=== PATIENT | male | born 1970 | race Caucasian/White ===

== ENCOUNTER 2024-04-12 00:58 | Emergency (ER) | payer SELFPAY ==
[2024-04-12 01:10] VITALS: BP 108/75; PULSE 86; RESP 16; TEMP 36.7; O2SAT 95; BMI 28.6
--- NOTE | 2024-04-12 02:05 | W.ED.NECK ---
HPI - Neck Pain/Injury General: Chief Complaint: Neck Pain/Injury Stated Complaint: Pain all over Time Seen by Provider: 04/12/24 02:01 History of Present Illness: 53-year-old man who presents emergency room with multiple joint pain complaints. He says his right ankle hurts. His left knee hurts. His right arm hurts. His neck hurts. This is all been going on for multiple years. When I ask if he seen his primary he says he does not have 1. On asking why he came in tonight versus some another time if anything is changed he has no answer for this. He has a very odd affect. Related Data Previous Rx's Medication Instructions Recorded prednisone 20 mg tablet 60 mg (3 x 20 mg) PO DAILY #20 tabs 04/12/24 Allergies Allergy/AdvReac Type Severity Reaction Status Date / Time No Known Allergies Allergy Verified 04/12/24 01:25 Review of Systems Narrative: Constitutional symptoms: Negative except as documented in HPI. Skin symptoms: Negative except as documented in HPI. Eye symptoms: Negative except as documented in HPI. ENMT symptoms: Negative except as documented in HPI. Respiratory symptoms: Negative except as documented in HPI. Cardiovascular symptoms: Negative except as documented in HPI. Gastrointestinal symptoms: Negative except as documented in HPI. Genitourinary symptoms: Negative except as documented in HPI. Musculoskeletal symptoms: Negative except as documented in HPI. Neurologic symptoms: Negative except as documented in HPI. Psychiatric symptoms: Negative except as documented in HPI. Endocrine symptoms: Negative except as documented in HPI. Physical Exam Narrative: EXAM NARRATIVE: General: Alert, no acute distress. Skin: warm and dry Head: Normocephalic Neck: Trachea midline Eye: Extraocular movements are intact. Ears, nose, mouth and throat: Oral mucosa moist Respiratory: Respirations are non-labored Musculoskeletal: Normal ROM Neurological: Alert and oriented, No focal neurological deficit observed. Psychiatric: Cooperative, appropriate mood & affect. Course Vital Signs: Vital signs: Vital Signs Temperature 98.0 F 04/12/24 01:10 Pulse Rate 86 04/12/24 01:10 Respiratory Rate 16 04/12/24 01:10 Blood Pressure 108/75 04/12/24 01:10 Pulse Oximetry 95 04/12/24 01:10 [facility] - Neck Pain/Injury Medical Decision Making Assessment and plan: Chronic joint pain ?Prednisone in the ER and a prednisone taper for home. - Discharged home - Discussed plan with patient. Answered any questions. - Evaluation and treatment of this problem were appropriate in the emergency setting. No radiology studies performed this visit Discharge Plan Discharge Patient Disposition: Home Clinical Impression: Joint pain Condition: Stable Prescriptions: New prednisone 20 mg tablet 60 mg PO DAILY Qty: 20 0RF Rx Instructions: 3 tabs (60 mg) x 3 days. 2 tabs (40 mg) x 3 days. 1 tab (20 mg) x 3 days. 1/2 tab (10 mg) x 4 days Discharge Orders: Discharge ED (Routine); Ordered 04/12/24 Ordered By: Caridad Arredondo Discharge Diet: Usual diet Discharge Activity: Increase activity as tolerated Patient Instructions: Pain Management Activity Restrictions/Additional Instructions: Thank you for choosing [facility] for your healthcare needs today. Please realize this is an emergency room and that we are providing you with a medical screening exam and this may not be complete and all inclusive of all the testing and or work up that you may need to determine your ailment or severity of your illness. You have been screened and evaluated and felt safe for discharge. Health conditions do change or evolve sometimes and as such it is important that you follow up with your Primary Doctor to be re checked, 3-5 days is a general good time frame for follow up. You are always welcome to return to the ED for re assessment if your symptoms are worsening or you have new concerns Coding Level of Care Code ED Benefits Technician for Mohamud Jesus
[2024-04-12 02:17] VITALS: BP 138/88; PULSE 82; RESP 16; O2SAT 96
[2024-04-12] MEDS: predniSONE 20 mg Tablet 60 MG PO (02:17)
== END 2024-04-12 02:18 | disposition home or self-care (01) ==
PROVIDERS: Emergency Provider Emergency Medicine
DX: M25.50 Pain in unspecified joint (principal); G89.29 Other chronic pain
CPT/HCPCS: 99283; J7512